=== PATIENT | male | born 1940 | race Caucasian/White ===

== ENCOUNTER 2016-12-11 09:27 | Emergency (ER) | payer MEDICARE, OTHER ==
[~2016-12-11 09:27] MED LIST: AMBIEN5 MG PO; HCTZ25 MG PO
[2016-12-11 09:48] LABS: BASOPHIL 0.2 % (0-2); EOSINOPHIL 4.3 % (0-7); HCT 43.8 % (42.0-52.0); HGB 15.2 g/dl (13.2-18.0); LYMPHOCYTE 21.6 % (15-48); MCHC 34.7 g/dL (32.0-36.0); MCV 89.4 fL (78.0-100.0); MONOCYTE 6.8 % (0-12); MPV 10.5 fL (6.0-9.5); NEUTROPHIL 67.1 % (41-80); PLT 206 K/uL (150-400); RDW 12.6 % (11.5-14.0); WBC 9.5 K/uL (4.0-10.5)
[2016-12-11 09:59] LABS: INR 1.02 (0.9-1.2); PTT 28.6 SECONDS (23.2-31.4)
[2016-12-11 10:01] LABS: D-DIMER 0.92 ug/mLFEU (0.00-0.41)
[2016-12-11 10:05] LABS: ALBUMIN 4.2 g/dL (3.4-4.8); BILIRUBIN - TOTAL 0.5 mg/dL (0.1-1.0); CREATININE 0.7 mg/dL (0.7-1.2); GLOBULIN (CALCULATION) 3.1 g/dL (2.2-4.2); MAGNESIUM 2.06 mg/dL (1.40-2.10); POTASSIUM 3.7 mmol/L (3.5-5.1); TOTAL PROTEIN 7.3 g/dL (6.4-8.3)
[2016-12-11 10:08] LABS: CKMB 1.97 ng/mL (0.97-4.94); MYOGLOBIN 31 ng/mL (26-65); PRO-BNP 102 pg/mL (0-125); TROPONIN T < 0.010 ng/mL
== END 2016-12-11 17:43 | disposition other institution (70) ==
LOC: FER 09:27
PROVIDERS: Emergency Medicine
DX: R07.89 Other chest pain (principal); R91.8 Other nonspecific abnormal finding of lung field; I49.1 Atrial premature depolarization; I51.7 Cardiomegaly; I10 Essential (primary) hypertension; F17.210 Nicotine dependence, cigarettes, uncomplicated; Z79.899 Other long term (current) drug therapy
CPT/HCPCS: 36415; 71010; 71275; 80053; 82550; 82553; 83735; 83874; 83880; 84484; 85025; 85379; 85610; 85730; 93005; Q9967

== ENCOUNTER 2021-03-16 12:16 | Emergency (ER) | payer MEDICARE, OTHER ==
[2021-03-16 13:46] LABS: BASOPHIL 0.3 % (0-2); EOSINOPHIL 1.6 % (0-7); HCT 33.9 % (42.0-52.0); HGB 11.3 g/dl (13.2-18.0); LYMPHOCYTE 31.6 % (15-48); MCHC 33.3 g/dL (32.0-36.0); MCV 92.9 fL (78.0-100.0); MONOCYTE 7.3 % (0-12); MPV 9.7 fL (6.0-9.5); NEUTROPHIL 58.6 % (41-80); NRBC 0; PLT 213 K/uL (150-400); RBC 3.65 M/uL (4.70-6.00); RDW 12.6 % (11.5-14.0); WBC 6.4 K/uL (4.0-10.5)
[2021-03-16 13:56] LABS: ALBUMIN 3.3 g/dL (3.4-5.0); BILIRUBIN - TOTAL 0.2 mg/dL (0.2-1.0); CREATININE 1.55 mg/dL (0.67-1.17); GLOBULIN (CALCULATION) 4.1 g/dL; POTASSIUM 3.2 mmol/L (3.5-5.1); TOTAL PROTEIN 7.4 g/dL (6.4-8.2)
== END 2021-03-16 17:19 | disposition home or self-care (01) ==
LOC: FER 12:16
PROVIDERS: Internal Medicine
DX: U07.1 COVID-19 (principal); E87.6 Hypokalemia; D64.9 Anemia, unspecified; C34.90 Malignant neoplasm of unspecified part of unspecified bronchus or lung; I10 Essential (primary) hypertension; J44.9 Chronic obstructive pulmonary disease, unspecified; F17.210 Nicotine dependence, cigarettes, uncomplicated; Z23 Encounter for immunization
CPT/HCPCS: 36415; 71045; 80053; 84145; 84484; 85025; 93005; M0243; Q0244; U0002

== ENCOUNTER 2021-07-02 16:35 | Inpatient (IN) | payer MEDICARE, OTHER ==
[~2021-07-02] VITALS: Ht 172.7 cm; Wt 72.3 kg
[2021-07-02 17:19] LABS: BASOPHIL 0.3 % (0-2); EOSINOPHIL 0.3 % (0-7); HCT 35.1 % (42.0-52.0); HGB 11.5 g/dl (13.2-18.0); LYMPHOCYTE 25.7 % (15-48); MCHC 32.8 g/dL (32.0-36.0); MCV 94.6 fL (78.0-100.0); MONOCYTE 6.1 % (0-12); MPV 10.1 fL (6.0-9.5); NRBC 0; PLT 256 K/uL (150-400); RBC 3.71 M/uL (4.70-6.00); RDW 12.8 % (11.5-14.0); WBC 15.7 K/uL (4.0-10.5)
[2021-07-02 17:24] LABS: INR 1.24 (0.9-1.2); PROTHROMBIN TIME 14.9 SECONDS (11.8-13.4); PTT 26.9 SECONDS (24.4-34.7)
[2021-07-02 17:39] LABS: ALBUMIN 3.5 g/dL (3.4-5.0); BILIRUBIN - TOTAL 0.7 mg/dL (0.2-1.0); BUN/CREAT RATIO (CALC) 6.9 RATIO; C-REACTIVE PROTEIN 10.6 mg/dL (<=0.90); CREATININE 2.02 mg/dL (0.67-1.17); GLOBULIN (CALCULATION) 3.3 g/dL; MAGNESIUM 1.5 mg/dL (1.8-2.4); TOTAL PROTEIN 6.8 g/dL (6.4-8.2)
[2021-07-02 17:40] LABS: LACTIC ACID 7.8 mmol/L (0.4-1.9)
[2021-07-02 17:41] LABS: BILIRUBIN NEGATIVE (NEGATIVE); BLOOD NEGATIVE Ery/uL (NEGATIVE); CLARITY CLEAR (CLEAR); COLOR YELLOW (YELLOW); GLUCOSE (U) NORMAL (NORMAL); LEUKOCYTES NEGATIVE Leu/uL (NEGATIVE); NITRITE NEGATIVE (NEGATIVE); PROTEIN NEGATIVE (NEGATIVE); SPECIFIC GRAVITY 1.015 (1.001-1.030); UROBILINOGEN 0.2 mg/dL (0.2-1.0)
[2021-07-02 17:41] LABS: CORONAVIRUS 2019 SARS-COV-2 NEGATIVE (NEGATIVE); INFLUENZA A NAA NEGATIVE (NEGATIVE)
[2021-07-03 05:45] LABS: BASOPHIL 0.2 % (0-2); EOSINOPHIL 0.3 % (0-7); HCT 28.2 % (42.0-52.0); HGB 9.6 g/dl (13.2-18.0); MONOCYTE 5.3 % (0-12); MPV 9.6 fL (6.0-9.5); NEUTROPHIL 78.8 % (41-80); NRBC 0; PLT 198 K/uL (150-400); RDW 13.2 % (11.5-14.0)
[2021-07-03 05:46] LABS: WBC 19.2 K/uL (4.0-10.5)
[2021-07-03 07:01] LABS: BUN/CREAT RATIO (CALC) 7.3 RATIO; CREATININE 2.75 mg/dL (0.67-1.17); POTASSIUM 3.5 mmol/L (3.5-5.1)
[2021-07-04 04:16] LABS: BASOPHIL 0.1 % (0-2); EOSINOPHIL 0 % (0-7); HCT 23.1 % (42.0-52.0); LYMPHOCYTE 6.1 % (15-48); MCH 31.3 pg (25.0-31.0); MCHC 34.6 g/dL (32.0-36.0); MCV 90.2 fL (78.0-100.0); MONOCYTE 3.7 % (0-12); NRBC 0; PLT 159 K/uL (150-400); RBC 2.56 M/uL (4.70-6.00); RDW 13.4 % (11.5-14.0); WBC 15.9 K/uL (4.0-10.5)
[2021-07-04 04:17] LABS: NEUTROPHIL 86.4 % (41-80)
[2021-07-04 04:43] LABS: BUN/CREAT RATIO (CALC) 11.1 RATIO; CREATININE 2.08 mg/dL (0.67-1.17); POTASSIUM 3.4 mmol/L (3.5-5.1)
[2021-07-05 02:11] LABS: BASOPHIL 0.1 % (0-2); EOSINOPHIL 0 % (0-7); HCT 23.6 % (42.0-52.0); LYMPHOCYTE 5.2 % (15-48); MCHC 33.9 g/dL (32.0-36.0); MCV 91.5 fL (78.0-100.0); MPV 10.3 fL (6.0-9.5); NRBC 0; PLT 156 K/uL (150-400); RBC 2.58 M/uL (4.70-6.00); RDW 13.8 % (11.5-14.0); RETICULOCYTE COUNT 1.1 % (1.0-2.0); WBC 11.7 K/uL (4.0-10.5)
[2021-07-05 02:16] LABS: IRON % SATURATION 58.6 %SAT (20-50)
[2021-07-05 02:18] LABS: NEUTROPHIL 90.5 % (41-80)
[2021-07-05 02:19] LABS: ALBUMIN 2.6 g/dL (3.4-5.0); BILIRUBIN - TOTAL 0.4 mg/dL (0.2-1.0); BUN/CREAT RATIO (CALC) 16.6 RATIO; CREATININE 1.93 mg/dL (0.67-1.17); GLOBULIN (CALCULATION) 3.2 g/dL; POTASSIUM 2.9 mmol/L (3.5-5.1); TOTAL PROTEIN 5.8 g/dL (6.4-8.2)
[2021-07-06 06:25] LABS: BASOPHIL 0.1 % (0-2); EOSINOPHIL 0 % (0-7); HCT 24.4 % (42.0-52.0); HGB 7.9 g/dl (13.2-18.0); LYMPHOCYTE 7.4 % (15-48); MCH 31.1 pg (25.0-31.0); MCHC 32.4 g/dL (32.0-36.0); MONOCYTE 3.9 % (0-12); MPV 10.5 fL (6.0-9.5); NEUTROPHIL 87.9 % (41-80); NRBC 0; PLT 153 K/uL (150-400); RBC 2.54 M/uL (4.70-6.00); RDW 14.3 % (11.5-14.0); WBC 9.1 K/uL (4.0-10.5)
[2021-07-06 06:28] LABS: MCV 96.1 fL (78.0-100.0)
[2021-07-06 06:44] LABS: ALBUMIN 2.5 g/dL (3.4-5.0); BILIRUBIN - TOTAL 0.3 mg/dL (0.2-1.0); BUN/CREAT RATIO (CALC) 19.4 RATIO; CREATININE 2.06 mg/dL (0.67-1.17); GLOBULIN (CALCULATION) 3.1 g/dL; POTASSIUM 3.4 mmol/L (3.5-5.1); TOTAL PROTEIN 5.6 g/dL (6.4-8.2)
[2021-07-06 06:46] LABS: MAGNESIUM 2.3 mg/dL (1.8-2.4)
[2021-07-07 06:43] LABS: BASOPHIL 0.1 % (0-2); EOSINOPHIL 0 % (0-7); HCT 27.4 % (42.0-52.0); HGB 8.4 g/dl (13.2-18.0); LYMPHOCYTE 7.7 % (15-48); MCH 30.3 pg (25.0-31.0); MCHC 30.7 g/dL (32.0-36.0); MCV 98.9 fL (78.0-100.0); MONOCYTE 6.9 % (0-12); MPV 10.7 fL (6.0-9.5); NEUTROPHIL 84.4 % (41-80); NRBC 0.7; PLT 168 K/uL (150-400); RBC 2.77 M/uL (4.70-6.00); RDW 14.5 % (11.5-14.0); WBC 8.1 K/uL (4.0-10.5)
[2021-07-07 07:14] LABS: ALBUMIN 2.5 g/dL (3.4-5.0); BILIRUBIN - TOTAL 0.3 mg/dL (0.2-1.0); BUN/CREAT RATIO (CALC) 22.4 RATIO; CREATININE 2.28 mg/dL (0.67-1.17); GLOBULIN (CALCULATION) 3.1 g/dL; POTASSIUM 4.4 mmol/L (3.5-5.1); TOTAL PROTEIN 5.6 g/dL (6.4-8.2)
--- NOTE | 2021-07-07 11:54 | NUR ---
07/07/21 Mr. Coleman is receiving comfort care. Emotional support is being provided with family.
--- NOTE | 2021-07-07 15:20 | NUR ---
THIS AM, PT WAS LETHARGIC AND SAT WAS 70% ON 50% VENTI MASK. 100% NRB APPLIED AND SATS CAME TO 88%. DR. SANDERSON TALKED WITH FAMILY AND THEY DECIDED TO MAKE PT COMFORT CARE. FAMILY CALLED FR. [place] IN FOR LAST RIGHTS AND ONCE HE LEFT, NRB WAS REMOVED AND 4L NC WAS APPLIED. IV ATIVAN AND MORPINE WERE GIVEN FOR COMFORT.
[2021-07-07 16:08] LABS: ORGANISM ID Not indicated. (.); SPECIMEN SOURCE Urine (.); STREPTOCOCCUS PNEUMONIAE AG Negative (Negative)
--- NOTE | 2021-07-07 18:54 | NUR ---
PT GOWN CHANGED AND LINES REMOVED FOR HOME. PERSONVALDEZ FROM [facility] VERBALIZED THAT HE WOULD BATHE PATIENT WHEN THEY GOT TO THEIR DESTINATION LONG LINES WERE PULLED. TRANSFERRED TO [facility] AND D/C WITH [facility].
== END 2021-07-07 19:00 | disposition expired | DRG 871 ==
LOC: FER 16:35 → FICU 20:18 → FTCU 07-05 22:08
PROVIDERS: Allergy & Immunology Allergy; Emergency Medicine; Hospitalist; Internal Medicine; Internal Medicine Cardiovascular Disease; ADMIT Internal Medicine
PROC: 3E033XZ Introduction of Vasopressor into Peripheral Vein, Percutaneous Approach (ICD-10-PCS; principal; 2021-07-02)
DX: A40.3 Sepsis due to Streptococcus pneumoniae (principal); R65.21 Severe sepsis with septic shock; J13 Pneumonia due to Streptococcus pneumoniae; J96.01 Acute respiratory failure with hypoxia; G92.8 Other toxic encephalopathy; I21.A1 Myocardial infarction type 2; C34.11 Malignant neoplasm of upper lobe, right bronchus or lung; N17.9 Acute kidney failure, unspecified; J44.0 Chronic obstructive pulmonary disease with (acute) lower respiratory infection; Z66 Do not resuscitate; Z51.5 Encounter for palliative care; Z20.822 Contact with and (suspected) exposure to COVID-19; I10 Essential (primary) hypertension; D50.9 Iron deficiency anemia, unspecified; K21.9 Gastro-esophageal reflux disease without esophagitis; N40.0 Benign prostatic hyperplasia without lower urinary tract symptoms; M06.9 Rheumatoid arthritis, unspecified; H91.93 Unspecified hearing loss, bilateral; E78.00 Pure hypercholesterolemia, unspecified; F17.290 Nicotine dependence, other tobacco product, uncomplicated; E87.6 Hypokalemia; D63.0 Anemia in neoplastic disease; E83.42 Hypomagnesemia; E86.0 Dehydration; R74.01 Elevation of levels of liver transaminase levels; Z90.2 Acquired absence of lung [part of]; Z86.16 Personal history of COVID-19; Z90.49 Acquired absence of other specified parts of digestive tract; Z90.79 Acquired absence of other genital organ(s); Z98.41 Cataract extraction status, right eye; Z98.42 Cataract extraction status, left eye; Z79.899 Other long term (current) drug therapy; Z92.21 Personal history of antineoplastic chemotherapy
CPT/HCPCS: 36415; 36600; 71045; 71250; 80048; 80053; 80202; 81003; 82803; 82962; 83540; 83550; 83605; 83690; 83735; 84145; 84484; 85025; 85610; 85730; 86140; 87040; 87045; 87046; 87070; 87077; 87186; 87449; 93005; 94640; C9113; J0692; J0696; J1644; J1650; J2060; J2270; J2370; J2543; J2930; J3370; J7030; J7040; J7050; J7060; J7120; U0002